=== PATIENT | male | born 2000 | race Two or more races ===

== ENCOUNTER → 2023-11-01 | Emergency (ER) | payer OTHER ==
[~2023-11-01] VITALS: Ht 182.9 cm; Wt 90.7 kg
[~2023-11-01] MED LIST: CLINDAMYCIN PHOSPHATE 150 MG/ML (600mg) IV ONE; DOVATO 50-3001 EACH; LIDOCAINE HCL 500 MG/50 ML 1% IJ ONE
[2023-11-01 11:28] LABS: HEMATOCRIT 46.7 % (39.0-48.0); HEMOGLOBIN 16.1 g/dL (13-16.00); MEAN CELL VOLUME 86.7 fL (80.0-100.00); MEAN CORPUSCULAR HEMOGLOBIN 29.9 pg (27.00-32.0); MEAN CORPUSCULAR HGB CONC 34.5 g/dl (32.0-36.0); PLATELET COUNT 137 K/uL (150-450); RED BLOOD COUNT 5.39 M/uL (4.00-6.00)
== END | disposition home or self-care (01) ==
LOC: ER 09:43
PROVIDERS: General Practice
DX: L02.91 Cutaneous abscess, unspecified (principal); B20 Human immunodeficiency virus [HIV] disease

== ENCOUNTER 2025-07-25 15:18 | Emergency (ER) | payer OTHER ==
[~2025-07-25] VITALS: Ht 182.9 cm; Wt 100.7 kg
[~2025-07-25 15:18] MED LIST changes: -CLINDAMYCIN PHOSPHATE 150 MG/ML (600mg) IV ONE; +DICLOFENAC POTA50 MG PO; +IBUPROFEN800 MG PO; -LIDOCAINE HCL 500 MG/50 ML 1% IJ ONE; +VOLTAREN ARTHRI20 GM TOP
== END 2025-07-25 17:15 | disposition left against medical advice (07) ==
LOC: ER 15:19
DX: Z53.21 Procedure and treatment not carried out due to patient leaving prior to being seen by health care provider (principal)